=== PATIENT | female | born 1990 | race Asian ===

== ENCOUNTER 2017-11-03 15:21 | Inpatient (IN) | payer BC ==
[~2017-11-03] VITALS: Ht 160 cm; Wt 90.3 kg
[2017-11-03] MEDS ORDERED: SODIUM CHLORIDE 0.9% 1000ML 1,000 ML IV ONE (15:49)
[2017-11-03] MEDS ORDERED: ONDANSETRON HCL 4 MG/2 ML VIAL ONE (15:49)
[2017-11-03] MEDS ORDERED: KETOROLAC TROMETHAMINE 30MG/ML ONE (15:50)
[2017-11-03 16:02] LABS: BASOPHILS % (AUTO) 0.3 % (0.0-5.0); EOSINOPHILS % (AUTO) 0.1 % (0.0-8.0); HEMATOCRIT 38.5 % (36-48); LYMPHOCYTES % (AUTO) 9.3 % (21.0-51.0); MEAN CORPUSCULAR HEMOGLOBIN 30.3 pg (27.0-33.0); MEAN CORPUSCULAR HGB CONC 35.1 g/dL (32.0-36.0); MEAN CORPUSCULAR VOLUME 86.5 fL (79-99); MONOCYTES % (AUTO) 3.9 % (3.0-13.0); NEUTROPHILS % (AUTO) 86.4 % (40.0-77.0); PLATELET COUNT (AUTO) 277 K/uL (130-400); RED BLOOD CELL COUNT(AUTO) 4.45 MIL/uL (4.00-5.50); RED CELL DISTRIBUTION WIDTH 13.1 % (11.0-15.5); WHITE BLOOD COUNT (AUTO) 11.1 K/uL (4.8-10.8)
[2017-11-03 16:19] LABS: CREATININE 0.6 mg/dL (0.5-1.5)
[2017-11-03 16:22] LABS: ALBUMIN 4.1 g/dL (3.5-5.0); BILIRUBIN,TOTAL 0.4 mg/dL (0.2-1.0); TOTAL PROTEIN, SERUM 7.8 g/dL (6.0-8.3)
[2017-11-03 16:47] LABS: APPEARANCE,URINE Clear (CLEAR); BILIRUBIN,URINE Negative (NEGATIVE); COLOR,URINE Yellow (YELLOW); GLUCOSE, URINE (UA) Negative (NEGATIVE); KETONES,URINE Negative (NEGATIVE); LEUKOCYTE ESTERASE ,URINE Small (NEGATIVE); NITRATE,URINE Negative (NEGATIVE); OCCULT BLOOD,URINE Large (NEGATIVE); PROTEIN,URINE Negative (NEGATIVE); UROBILINOGEN,URINE 0.2 mg/dL (0.2-1.0)
[2017-11-03] MEDS ORDERED: IOPAMIDOL-370 75 ML VIAL IV ONE (16:48)
[2017-11-03 17:09] LABS: BACTERIA,URINE Rare /HPF (None Seen); RBC,URINE 26-50 /HPF (0-1); SQUAMOUS EPITHELIAL CELL,UR Few /LPF (0-2)
[2017-11-03 21:50] VITALS: BP 143/70
[2017-11-03] MEDS ORDERED: PROMETHAZINE HCL 25 MG/ML 1ML AMPULE IM PRN (22:30)
[2017-11-03] MEDS ORDERED: MEPERIDINE-PF 50 MG/ML SYG IM PRN (22:30)
[2017-11-03 23:06] VITALS: BP 107/63
[2017-11-04] VITALS (22 sets, daily range): BP systolic 100–139; BP diastolic 52–88
[2017-11-04] MEDS: DEXTROSE 5 %-0.45 % NACL 1,000 ML IV SCH ×4 (00:51→23:14)
[2017-11-04 06:38] LABS: HEMATOCRIT 36.3 % (36-48); MEAN CORPUSCULAR HEMOGLOBIN 29.8 pg (27.0-33.0); MEAN CORPUSCULAR HGB CONC 33.7 g/dL (32.0-36.0); MEAN CORPUSCULAR VOLUME 88.3 fL (79-99); PLATELET COUNT (AUTO) 257 K/uL (130-400); RED BLOOD CELL COUNT(AUTO) 4.11 MIL/uL (4.00-5.50); RED CELL DISTRIBUTION WIDTH 13.5 % (11.0-15.5); WHITE BLOOD COUNT (AUTO) 6.4 K/uL (4.8-10.8)
[2017-11-04] MEDS ORDERED: LACTATED RINGERS 1000ML 1,000 ML IV ONE (11:44)
[2017-11-04] MEDS ORDERED: PROPOFOL 10 MG/ML 20ML VIAL IV ONE (12:19)
[2017-11-04] MEDS ORDERED: MIDAZOLAM HCL 1 MG/ML 2ML VIAL ONE (12:19)
[2017-11-04] MEDS ORDERED: ROCURONIUM BROMIDE 10MG/1ML 5ML VL ONE (12:19)
[2017-11-04] MEDS ORDERED: LIDOCAINE PF 2% 5ML ABBOJECT ONE (12:19)
[2017-11-04] MEDS ORDERED: FENTANYL CITRATE PF 50 MCG/1 ML 2ML VIAL ONE (12:21)
[2017-11-04] MEDS ORDERED: FENTANYL CITRATE PF 50 MCG/1 ML 5ML AMP IV ONE (12:38)
[2017-11-04] MEDS ORDERED: CALDOLOR 800MG+NS 250ML 250 ML IV ONE (12:49)
[2017-11-04] MEDS ORDERED: CEFAZOLIN SODIUM 1 GM VIAL ONE (12:49)
[2017-11-04] MEDS ORDERED: DEXTROSE 5 %-0.45 % NACL 1,000 ML IV PRN (14:26)
[2017-11-04] MEDS ORDERED: PROMETHAZINE HCL 25 MG/ML 1ML AMPULE IM PRN ×2 (14:30)
[2017-11-04] MEDS ORDERED: BISACODYL 10 MG SUPP.RECT RC PRN (14:30)
[2017-11-04] MEDS ORDERED: MEPERIDINE-PF 75 MG/ML SYG IM PRN (14:30)
[2017-11-04 16:42] LABS: HEMATOCRIT 40.5 % (36-48)
[2017-11-05 03:13] VITALS: BP 93/63
[2017-11-05] MEDS: DEXTROSE 5 %-0.45 % NACL 1,000 ML IV SCH ×3 (06:14→23:02)
[2017-11-05] MEDS: ACETAMINOPHEN-CODEINE 300/30MG TAB PO PRN ×2 (06:33→15:42)
[2017-11-05 06:48] LABS: HEMATOCRIT 36.3 % (36-48); MEAN CORPUSCULAR HEMOGLOBIN 29.3 pg (27.0-33.0); MEAN CORPUSCULAR HGB CONC 33.3 g/dL (32.0-36.0); PLATELET COUNT (AUTO) 253 K/uL (130-400); RED BLOOD CELL COUNT(AUTO) 4.12 MIL/uL (4.00-5.50); RED CELL DISTRIBUTION WIDTH 13.3 % (11.0-15.5); WHITE BLOOD COUNT (AUTO) 11.8 K/uL (4.8-10.8)
[2017-11-05] MEDS: IBUPROFEN 600 MG TABLET PO PRN ×2 (07:55→21:37)
[2017-11-05 08:05] VITALS: BP 99/50
[2017-11-05 11:53] VITALS: BP 132/75
[2017-11-05 15:36] VITALS: BP 92/57
[2017-11-05] MEDS: SIMETHICONE 80 MG TAB.CHEW PO PRN ×2 (15:41→21:07)
[2017-11-05] MEDS: DOCUSATE SODIUM 100 MG CAP PO PRN ×2 (15:42→21:07)
[2017-11-05 19:35] VITALS: BP 104/62
[2017-11-05 23:10] VITALS: BP 105/63
[2017-11-06] MEDS: ACETAMINOPHEN-CODEINE 300/30MG TAB PO PRN (02:37)
[2017-11-06 03:16] VITALS: BP 99/58
[2017-11-06] MEDS: DEXTROSE 5 %-0.45 % NACL 1,000 ML IV SCH ×3 (03:37→06:57)
[2017-11-06 07:32] VITALS: BP 103/57
[2017-11-06] MEDS: DOCUSATE SODIUM 100 MG CAP PO PRN (08:28)
[2017-11-06] MEDS: IBUPROFEN 600 MG TABLET PO PRN ×2 (08:29→14:12)
[2017-11-06 11:21] VITALS: BP 96/52
[2017-11-06] MEDS ORDERED: ACET1TAB12 PO (12:36)
== END 2017-11-06 15:10 | disposition home or self-care (01) | DRG 983 ==
LOC: EDH 15:21 → EDHIP 19:13 → WSH 21:50
PROVIDERS: ADMIT Obstetrics & Gynecology; ATTEND Obstetrics & Gynecology
PROC: 0UT10ZZ Resection of Left Ovary, Open Approach (ICD-10-PCS; principal; 2017-11-04 12:20)
PROC: 0UT60ZZ Resection of Left Fallopian Tube, Open Approach (ICD-10-PCS; 2017-11-04 12:20)
DX: R19.00 Intra-abdominal and pelvic swelling, mass and lump, unspecified site (principal)
CPT/HCPCS: 36415; 74177; 76856; 80053; 81001; 81025; 83690; 85025; 85027; 86850; 86900; 86901; 88108; 88305; 88307; A4344; J0690; J1741; J1885; J2001; J2175; J2250; J2405; J2550; J2704; J3010; J3490; J7030; J7120; Q9967

== ENCOUNTER → 2018-01-08 | Outpatient (CLI) | payer BC ==
[~2018-01-08] MED LIST: ACET1TAB12 PO
== END ==
LOC: RAH 13:26
PROVIDERS: ATTEND Internal Medicine
DX: R05 Cough (principal)
CPT/HCPCS: 71250

== ENCOUNTER → 2018-02-10 | Outpatient (CLI) | payer BC ==
[~2018-02-10] MED LIST changes: +ALBUTEROL SULFATE 0.083% 2.5 MG/3 ML INH IH ONE
== END | disposition home or self-care (01) ==
LOC: RESP 09:08
PROVIDERS: ATTEND Internal Medicine
DX: J45.909 Unspecified asthma, uncomplicated (principal)
CPT/HCPCS: 94060; 94727; 94729